=== PATIENT | female | born 1970 | race African-American/Black ===

== ENCOUNTER 2020-12-27 00:07 | Emergency (ER) | payer MEDICARE, MEDICAID ==
[~2020-12-27] VITALS: Ht 157.5 cm; Wt 65.9 kg
[2020-12-27] MEDS ORDERED: HYDR200T38 PO (00:25)
[2020-12-27] MEDS ORDERED: PRED10 PO (00:25)
[2020-12-27] MEDS ORDERED: HYDR-4723 PO (00:25)
[2020-12-27 02:20] VITALS: BP 130/68
== END 2020-12-27 03:59 | disposition home or self-care (01) ==
LOC: EMS 00:14
DX: M54.6 Pain in thoracic spine (principal); M54.2 Cervicalgia; M25.511 Pain in right shoulder; M06.9 Rheumatoid arthritis, unspecified; V98.8XXA Other specified transport accidents, initial encounter; Y93.89 Activity, other specified; Y92.89 Other specified places as the place of occurrence of the external cause; Y99.8 Other external cause status
CPT/HCPCS: 99281; 99282; Z7502

== ENCOUNTER 2021-06-27 19:55 | Emergency (ER) | payer MEDICARE, MEDICAID ==
[~2021-06-27] VITALS: Ht 157.5 cm; Wt 130.0 kg
[~2021-06-27 19:55] MED LIST: HYDR-4723 PO; HYDR200T38 PO; PRED-729 PO
[2021-06-27 20:05] VITALS: BP 123/90
== END 2021-06-27 21:45 | disposition left against medical advice (07) ==
LOC: EMS 20:12
DX: M25.512 Pain in left shoulder (principal); M32.9 Systemic lupus erythematosus, unspecified; M06.9 Rheumatoid arthritis, unspecified; Z91.040 Latex allergy status; V89.2XXA Person injured in unspecified motor-vehicle accident, traffic, initial encounter; Y93.89 Activity, other specified; Y92.89 Other specified places as the place of occurrence of the external cause; Y99.8 Other external cause status
CPT/HCPCS: 99281; Z7502

== ENCOUNTER 2022-03-06 10:35 | Emergency (ER) | payer MEDICARE, OTHER ==
[~2022-03-06] VITALS: Ht 157.5 cm; Wt 68.2 kg
[2022-03-06 10:52] VITALS: BP 124/59
[2022-03-06] MEDS ORDERED: IBUP-1554 PO (15:08)
== END 2022-03-06 11:58 | disposition left against medical advice (07) ==
LOC: EMS 10:45
DX: M25.562 Pain in left knee (principal); M25.561 Pain in right knee; Z53.21 Procedure and treatment not carried out due to patient leaving prior to being seen by health care provider

== ENCOUNTER 2022-03-06 12:28 | Emergency (ER) | payer MEDICARE, OTHER ==
[~2022-03-06] VITALS: Ht 162.6 cm; Wt 70.5 kg
[2022-03-06 15:06] VITALS: BP 116/71
[2022-03-06] MEDS ORDERED: IBUP-1554 PO (15:08)
== END 2022-03-06 15:23 | disposition home or self-care (01) ==
LOC: EMS 12:53
DX: M25.562 Pain in left knee (principal); M25.561 Pain in right knee; S83.92XA Sprain of unspecified site of left knee, initial encounter; M19.90 Unspecified osteoarthritis, unspecified site; Z91.040 Latex allergy status; F17.210 Nicotine dependence, cigarettes, uncomplicated; Z93.3 Colostomy status; V49.9XXA Car occupant (driver) (passenger) injured in unspecified traffic accident, initial encounter; Y93.89 Activity, other specified; Y92.89 Other specified places as the place of occurrence of the external cause; Y99.8 Other external cause status
CPT/HCPCS: 99283

== ENCOUNTER 2022-03-28 11:59 | Emergency (ER) | payer MEDICARE, OTHER ==
[~2022-03-28] VITALS: Ht 157.5 cm; Wt 59.1 kg
[~2022-03-28 11:59] MED LIST changes: +IBUP-1554 PO
[2022-03-28] MEDS ORDERED: AMIT-166 PO (12:15)
[2022-03-28 12:19] LABS: COVID AG,FIA SOURCE NASAL SWAB
[2022-03-28 13:00] LABS: INFLUENZA TYPE A NEGATIVE FOR TYPE A (NEGATIVE); INFLUENZA TYPE B NEGATIVE FOR TYPE B (NEGATIVE)
[2022-03-28] MEDS ORDERED: CEPH-558 PO (13:34)
[2022-03-28 13:49] VITALS: BP 125/80
== END 2022-03-28 13:50 | disposition home or self-care (01) ==
LOC: EMS 12:00
DX: L73.9 Follicular disorder, unspecified (principal); M06.9 Rheumatoid arthritis, unspecified; F17.210 Nicotine dependence, cigarettes, uncomplicated; Z93.3 Colostomy status; Z98.890 Other specified postprocedural states; Z91.040 Latex allergy status; Z20.822 Contact with and (suspected) exposure to COVID-19
CPT/HCPCS: 87804; 99283

== ENCOUNTER 2023-03-02 15:17 | Emergency (ER) | payer MEDICARE, OTHER ==
[~2023-03-02] VITALS: Ht 160 cm; Wt 65.9 kg
[~2023-03-02 15:17] MED LIST changes: +AMIT-166 PO; +CEPH-558 PO
[2023-03-02 15:39] VITALS: BP 113/64; PULSE 84; RESP 18; TEMP 98.3
[2023-03-02 15:46] LABS: COVID AG,FIA SOURCE NASAL SWAB
[2023-03-02 16:11] LABS: SARS-COV2 (COVID) ANTIGEN,FIA Negative (Negative)
[2023-03-02 16:12] LABS: INFLUENZA TYPE A NEGATIVE FOR TYPE A (NEGATIVE); INFLUENZA TYPE B NEGATIVE FOR TYPE B (NEGATIVE)
== END 2023-03-02 16:52 | disposition left against medical advice (07) ==
LOC: EMS 15:38
DX: G89.29 Other chronic pain (principal); M25.562 Pain in left knee; M25.561 Pain in right knee; R05.9 Cough, unspecified; R09.81 Nasal congestion; Z53.21 Procedure and treatment not carried out due to patient leaving prior to being seen by health care provider; Z20.822 Contact with and (suspected) exposure to COVID-19
CPT/HCPCS: 87804; 99281; Z7502

== ENCOUNTER → 2024-05-20 | Emergency (ER) | payer MEDICARE, OTHER ==
[~2024-05-20] VITALS: Ht 162.6 cm; Wt 59.1 kg
[~2024-05-20] MED LIST changes: -AMIT-166 PO; +AMIT10TA7 PO; +HYDR-4062 PO; -HYDR-4723 PO; +HYDR200T76 PO; +PRED5TAB2 PO
[2024-05-20 21:15] VITALS: TEMP 98.5
[2024-05-21 02:43] VITALS: BP 114/78; PULSE 71; RESP 16; O2SAT 100
== END | disposition left against medical advice (07) ==
LOC: EMS 21:11
DX: R42 Dizziness and giddiness (principal); F17.210 Nicotine dependence, cigarettes, uncomplicated; Z88.5 Allergy status to narcotic agent; Z91.040 Latex allergy status
CPT/HCPCS: 99281; Z7502

== ENCOUNTER 2024-07-19 06:57 | Emergency (ER) | payer MEDICARE, OTHER ==
[~2024-07-19] VITALS: Ht 157.5 cm; Wt 68.2 kg
[~2024-07-19 06:57] MED LIST changes: -AMIT10TA7 PO; -CEPH-558 PO; -HYDR-4062 PO; -HYDR200T38 PO; -IBUP-1554 PO; -PRED-729 PO
[2024-07-19 07:00] VITALS: TEMP 98.4
[2024-07-19 07:12] LABS: COVID AG,FIA SOURCE NASAL SWAB
[2024-07-19 07:41] LABS: INFLUENZA TYPE A NEGATIVE FOR TYPE A (NEGATIVE); INFLUENZA TYPE B NEGATIVE FOR TYPE B (NEGATIVE); SARS-COV2 (COVID) ANTIGEN,FIA Negative (Negative)
[2024-07-19] MEDS: ACETAMINOPHEN 500 MG TABLET PO ONE (08:01)
[2024-07-19] MEDS: KETOROLAC TROMETHAMINE 30 MG/ML VIAL IM ONE (08:01)
[2024-07-19] MEDS ORDERED: IBUP-1492 PO (10:17)
[2024-07-19 10:58] VITALS: BP 121/77; PULSE 84; RESP 16; O2SAT 97
== END 2024-07-19 11:02 | disposition home or self-care (01) ==
LOC: EMS 07:02
DX: B34.9 Viral infection, unspecified (principal); M06.9 Rheumatoid arthritis, unspecified; M79.604 Pain in right leg; M79.605 Pain in left leg; F17.210 Nicotine dependence, cigarettes, uncomplicated; Z88.5 Allergy status to narcotic agent; Z98.890 Other specified postprocedural states; Z79.899 Other long term (current) drug therapy; Z91.040 Latex allergy status; Z20.822 Contact with and (suspected) exposure to COVID-19
CPT/HCPCS: 99285; 93970; 87426; 87804; 96372; J1885